=== PATIENT | male | born 1990 | race Two or more races ===

== ENCOUNTER 2017-03-23 08:40 | Day surgery (SDC) | payer BC ==
[~2017-03-23 08:40] MED LIST: Bupivacaine 0.5% 30 ML SDV ONE; Midazolam 1 MG/ML 2 ML SDV ONE; Propofol 200 MG/20 ML SDV ONE; ceFAZolin 2 GM in Premix Bag 1 BAG IV ONE; fentaNYL 100 MCG/2 ML SDV ONE
[2017-03-23] MEDS ORDERED: Lactated Ringers 1,000 ML IV SCH (09:15)
[2017-03-23] MEDS ORDERED: ePHEDrine 50 MG/ML SDV ONE (09:19)
--- NOTE | 2017-03-23 10:21 | PCM.PREANE ---
Preanesthetic Assessment - Anesthesia/Transfusion/Family Hx Anesthesia History: No Prior Anesthesia Transfusion History: No Prior Transfusion(s) - Review of Systems General: No Symptoms Pulmonary: No Symptoms Cardiovascular: No Symptoms Gastrointestinal: No Symptoms Neurological: No Symptoms Other: Reports: None - Physical Assessment NPO Status Date: 03/22/17 NPO Status Time: 22:00 O2 Sat by Pulse Oximetry: 97 Respiratory Rate: 16 Vital Signs: Last Vital Signs Temp 97.9 F 03/23/17 08:45 Pulse 83 03/23/17 08:45 Resp 16 03/23/17 08:45 BP 136/79 03/23/17 08:45 Pulse Ox 97 03/23/17 08:45 Height: 5 ft 11 in Weight: 99.79 kg ASA Class: 1 Mental Status: Alert & Oriented x3 Airway Class: Mallampati = 2 Dentition: Reports: Normal Dentition Thyro-Mental Finger Breadths: 3 Mouth Opening Finger Breadths: 3 ROM/Head Extension: Full Lungs: Clear to Auscultation, Normal Respiratory Effort Cardiovascular: Regular Rate, Regular Rhythm - Allergies Allergies/Adverse Reactions: Allergies Allergy/AdvReac Type Severity Reaction Status Date / Time No Known Allergies Allergy Verified 03/20/17 13:39 - Acknowledgements Anesthesia Type Planned: General Anesthesia (LMA) Pt an Appropriate Candidate for the Planned Anesthesia: Yes Alternatives and Risks of Anesthesia Discussed w Pt/Guardian: Yes Pt/Guardian Understands and Agrees with Anesthesia Plan: Yes PreAnesthesia Questionnaire - Past Health History Medical/Surgical History: Denies Medical/Surgical History HEENT History: Reports: None Cardiovascular History: Reports: None Respiratory History: Reports: None Gastrointestinal History: Reports: None Genitourinary History: Reports: None Musculoskeletal History: Reports: None Neurological History: Reports: None Psychiatric History: Reports: None Endocrine/Metabolic History: Reports: None Hematologic History: Reports: None Immunologic History: Reports: None Oncologic (Cancer) History: Reports: None Dermatologic History: Reports: None - Infectious Disease History Infectious Disease History: Reports: None - Past Surgical History Head Surgeries/Procedures: Reports: None - SUBSTANCE USE Smoking Status *Q: Former Smoker Tobacco Use Within Last Twelve Months: Cigarettes Recreational Drug Use History: No - HOME MEDS Home Medications: Home Meds . [No Known Home Meds] 03/20/17 [History] - CURRENT (IN HOUSE) MEDS Current Meds: Current Medications Lactated Ringer's (Ringers, Lactated) 1,000 mls @ 125 mls/hr IV ASDIRECTED BISI Discontinued Medications Bupivacaine HCl (Marcaine 0.5%) Confirm Administered Dose 30 ml .ROUTE .STK-MED ONE Stop: 03/23/17 07:37 Ephedrine Sulfate (Ephedrine Sulfate) Confirm Administered Dose 50 mg .ROUTE .STK-MED ONE Stop: 03/23/17 09:20 Fentanyl (Sublimaze) Confirm Administered Dose 100 mcg .ROUTE .STK-MED ONE Stop: 03/23/17 08:20 Cefazolin Sodium/Dextrose 2 gm (/ Premix) 50 mls @ 100 mls/hr IV ONETIME ONE Stop: 03/22/17 11:02 Lidocaine HCl (Xylocaine-Mpf 1%) Confirm Administered Dose 5 ml .ROUTE .STK-MED ONE Stop: 03/23/17 08:20 Midazolam HCl (Versed 1 Mg/Ml) Confirm Administered Dose 2 mg .ROUTE .STK-MED ONE Stop: 03/23/17 08:19 Midazolam HCl (Versed 1 Mg/Ml) Confirm Administered Dose 2 mg .ROUTE .STK-MED ONE Stop: 03/23/17 08:19 Propofol (Diprivan 20 Ml) Confirm Administered Dose 200 mg .ROUTE .STK-MED ONE Stop: 03/23/17 08:19
[2017-03-23] MEDS ORDERED: fentaNYL 100 MCG/2 ML SDV IVPUSH PRN (10:32)
[2017-03-23] MEDS ORDERED: ceFAZolin 1 GM Vial ONE (10:46)
[2017-03-23] MEDS ORDERED: Ondansetron 4 MG/2 ML SDV ONE (10:46)
[2017-03-23] MEDS ORDERED: diphenhydrAMINE 50 MG/ML SDV ONE (10:46)
[2017-03-23] MEDS ORDERED: Acetaminophen/HYDROcodone 325-5 MG Tab PO PRN (11:58)
--- NOTE | 2017-03-23 12:05 | PCM.OPNOTE ---
- General Post-Op/Procedure Note Date of Surgery/Procedure: 03/23/17 Operative Procedure(s): excision of mass left second toe Findings: consistent with diagnosis Pre Op Diagnosis: mass left second toe Post-Op Diagnosis: mass left second toe Anesthesia Technique: General LMA Primary Surgeon: Eric Art Pathology: mass left second toe, measuring approximately 3 cm x 1.5 cm x 1 cm EBL in mLs: 3 Complications: none Condition: Good Free Text/Narrative:: materials: 4-0 vicryl, 4-0 prolene injectables: 5 ml 0.5% marcaine plaine pre-op, 5 ml 0.5% marcaine plaine post-op
--- NOTE | 2017-03-23 12:31 | PCM.POSTAN ---
POST ANESTHESIA ASSESSMENT - MENTAL STATUS Mental Status: Alert, Oriented - RESPIRATORY Respiratory Status: Respiratory Rate WNL, Airway Patent, O2 Saturation Stable - CARDIOVASCULAR CV Status: Pulse Rate WNL, Blood Pressure Stable - GASTROINTESTINAL GI Status: No Symptoms - POST OP HYDRATION Hydration Status: Adequate & Stable
[2017-03-23] MEDS ORDERED: Ketorolac 30 MG/ML SDV ONE (12:46)
--- NOTE | 2017-03-23 13:44 | PCM48HPAN ---
Post Anesthesia Note - EVALUATION WITHIN 48HRS OF ANESTHETIC Vital Signs in Normal Range: Yes Patient Participated in Evaluation: Yes Respiratory Function Stable: Yes Airway Patent: Yes Cardiovascular Function Stable: Yes Hydration Status Stable: Yes Pain Control Satisfactory: Yes Nausea and Vomiting Control Satisfactory: Yes Mental Status Recovered: Yes
--- NOTE | 2017-03-23 13:52 | PN ---
PLANNED PROCEDURE TODAY: Excision of mass, 2nd toe, left foot. PREOPERATIVE DIAGNOSIS: Mass, 2nd toe, left foot. PAST MEDICAL HISTORY: He does have a history of low back pain, which is now stable. ALLERGIES: No known allergies. MEDICATIONS: No current medications. LABORATORY DATA: White blood cell 9.33, red blood cell 5.33, hemoglobin 14.2, hematocrit 43.8, platelets 262. Glucose 90, calcium 9.9, BUN 13, creatinine 1.14, sodium 140, potassium 4.3, chloride 102, CO2 of 27.0. The patient was cleared by Dr. Wood with no contraindications to surgery. The patient agrees to surgery today with no guarantees expressed or implied. KOSTAS ATKINSON /[id number]
--- NOTE | 2017-03-24 03:58 | OR ---
SURGEON: Eric Art DPM DATE OF PROCEDURE: 03/23/2017 PREOPERATIVE DIAGNOSIS: Mass on the second toe of the left foot. POSTOPERATIVE DIAGNOSIS: Mass on the second toe of the left foot. OPERATIVE PROCEDURE: Excision of mass, second toe of left foot. PATHOLOGY: Mass of second toe. ANESTHESIA: General with a local block consisting of 5 mL of 0.5% Marcaine plain preoperatively, and an additional 5 mL of 0.5% Marcaine plain was injected postoperatively about the second toe and distal left foot. HEMOSTASIS: Above ankle pneumatic tourniquet inflated to a pressure of 250 mmHg. ESTIMATED BLOOD LOSS: 3 mL. MATERIALS: 4-0 Vicryl and 4-0 Prolene. FINDINGS: Consistent with diagnosis. COMPLICATIONS: None seen. CONDITION: The patient tolerated the procedure and anesthesia well and was transferred to the recovery room with all vital signs stable and neurovascular status intact to all digits of the left foot. JUSTIFICATION FOR PROCEDURE: The patient was seen by me in January 2017 diagnosed with a mass on the left foot, which the patient stated was slowly enlarging. The patient was not in acute pain, but was concerned that the mass was continuing to enlarge. I recommended surgical excision and that the mass will be sent to pathology to get a definitive diagnosis. The patient agreed and was cleared for surgery and consented for surgery today with no guarantees expressed or implied. Surgery to consist of excision of the mass from the second toe of the left foot. PROCEDURE IN DETAIL: Excision of mass from the second toe of the left foot. Attention was directed to the left foot, where an Esmarch bandage exsanguination was done, and the tourniquet was inflated to a pressure of 250 mmHg. The bandage was then removed, and incision was planned over the second toe of the left foot, and a linear longitudinal incision was made over the center of the palpable mass through the skin and through the subcutaneous layer. The mass was immediately encountered, and it was meticulously dissected with a combination of sharp and blunt dissection with care being taken to cut, clamp, ligate, and/or retract away any small vessels. The extensor tendon was identified plantar to the mass and was dissected free from the plantar surface of the mass. The mass was on the proximal midportion of the toe, measured approximately 3 cm x 1.5 cm x 1 cm. There was no rupture of the mass identified following excision of the mass, was placed in a sterile specimen container, and sent to pathology for gross and histologic examination. The area was reinspected. Discolored areas of fat were flushed out as they were very small and very loose following excision of the mass. No other pathology was visible. The area was flushed again and dried in preparation for closure. Closure consisted of reapproximation of the subcutaneous layer with 4-0 Vicryl suture and the superficial skin with 4-0 Prolene suture. The site was covered with Betadine-soaked Xeroform gauze followed by silk gauze, secured with additional gauze and a Kerlix roll, and those dressings were secured with an Ryan bandage. The patient tolerated the procedure and anesthesia well with no complications noted. Prompt hyperemic response was noted to all digits of the left foot following deflation of the tourniquet. The remaining 5 mL of 0.5% Marcaine plain was infiltrated about the area just prior to application of the dressings. The patient was transported from the operating room to the recovery room with vital signs stable and neurovascular status intact to the digits of the left foot. Following brief stay in recovery room, the patient is being discharged with written and verbal instructions for postoperative care, followup, and pain management. KOSTAS ATKINSON /[id number]
== END 2017-03-23 13:45 | disposition home or self-care (01) ==
LOC: MW.SDS 08:40
PROVIDERS: ATTEND Podiatrist Foot & Ankle Surgery
DX: D48.1 Neoplasm of uncertain behavior of connective and other soft tissue (principal); Z87.891 Personal history of nicotine dependence
CPT/HCPCS: 28092; 88305; J0690; J1200; J1885; J2250; J2405; J3010; J7120; 00400; J2704

== ENCOUNTER 2021-03-11 21:36 | Emergency (ER) | payer SELFPAY ==
[2021-03-11] MEDS ORDERED: Ibuprofen Susp 100 MG/5 ML 10 ML UD Cup PO ONE (22:18)
[2021-03-11] MEDS ORDERED: Dexamethasone 10 MG/ML SDV ONE (22:25)
[2021-03-11] MEDS ORDERED: Dexamethasone 10 MG/ML SDV PO ONE (22:27)
[2021-03-11] MEDS ORDERED: Penicillin G Benzathine 1,200,000 Units/2 ML Syringe IM ONE (22:33)
[2021-03-12] MEDS ORDERED: Sodium Chloride 0.9% 1,000 ML IV STA (00:06)
[2021-03-12] MEDS ORDERED: Ketorolac 30 MG/ML SDV IVPUSH ONE (00:06)
[2021-03-12 00:47] LABS: BLOOD UREA NITROGEN,BUN 11 mg/dL (7.0-18.0); CARBON DIOXIDE,CO2 23.3 mmol/L (21.0-32.0); CHLORIDE,CL 97 mmol/L (98-107); GLUCOSE RANDOM 111 mg/dL (74-106); POTASSIUM,K 4.4 mmol/L (3.5-5.1); SODIUM,NA 132 mmol/L (136-148)
[2021-03-12] MEDS ORDERED: Iopamidol 755 MG/ML 500 ML Multipack Bottle IVPUSH ONE (01:18)
== END 2021-03-12 02:28 | disposition home or self-care (01) ==
LOC: MW.ED 21:36
DX: U07.1 COVID-19 (principal); B27.90 Infectious mononucleosis, unspecified without complication; J02.0 Streptococcal pharyngitis
CPT/HCPCS: 36415; 70360; 70491; 80053; 85025; 86140; 86308; 87635; 87880; 96372; 96374; 99284; A9270; J0561; J1885; J7040; J8540; Q9967; U0002